=== PATIENT | male | born 1945 | race Caucasian/White ===

== ENCOUNTER 2017-12-18 21:06 | Emergency (ER) | payer OTHER ==
[~2017-12-18] VITALS: Ht 182.9 cm; Wt 81.6 kg
[~2017-12-18 21:06] MED LIST: BUPROPION HYDR150 M1 PO; EPIPEN 2-PAK1 MG/ML IM; HYDROXYZINE50 MG PO; NEXIUM 40MG40 MG PO; PREDNISONE10 MG PO
--- NOTE | 2017-12-18 22:49 | RADIOLOGY REPORT ---
EXAMINATION: XR CHEST CLINICAL INFORMATION: Dyspnea COMPARISON: Prior chest June 2017 TECHNIQUE: 2 views of the chest were obtained. FINDINGS: No significant abnormality is noted involving the heart, lungs, mediastinum, bony thorax or soft tissues. IMPRESSION: Unremarkable examination.
[2017-12-18 23:56] VITALS: BP 131/60
--- NOTE | 2017-12-18 23:59 | ED INFLUENZA/URI COMPLAINT ---
History of Present Illness General Chief Complaint: General Adult Stated Complaint: "MY DR THINKS I HAVE PNEMONIA NEED CHEST XRAY" Vital Signs & Intake/Output Vital Signs & Intake/Output Vital Signs Date Time Temp Pulse Resp B/P B/P Pulse O2 O2 Flow FiO2 Mean Ox Delivery Rate 12/18 2357 99 Room Air 12/18 2356 66 20 99 Room Air 12/18 2129 97.9 68 18 150/72 95 Room Air Allergies Coded Allergies: MDX - PCN (penicillin) (PCN (PENICILLIN)) (UNKNOWN 09/17/11) Reconcile Medications Albuterol Sulfate (Ventolin Hfa) 90 MCG HFA.AER.AD 2 PUF INH Q4-6 PRN PRN COUGH WHEEZE Benzonatate (Tessalon Perle) 100 MG CAPSULE 1-2 CAP PO TID PRN COUGH BUPROPION HCL (Bupropion XL) 150 MG TAB.ER.24H 1 TAB PO QAM SMOKING CESSATION (Reported) Epinephrine (Epipen 2-John Auto-Injector) 1 MG/ML KIT 0.3 mg IM PRN PRN anaphylactic reaction Esomeprazole (Nexium) 40 MG CAPSULE.DR 1 CAP PO DAILY GERD (Reported) Hydroxyzine Hydrochloride (Hydroxyzine) 50 MG TAB 1 TAB PO Q6H PRN RASH/ITCH Prednisone 50 MG TABLET 1 TAB PO DAILY BRONCHITIS Prednisone 10 MG TABLET 3 TAB PO DAILY allergic reaction Triage Note: PT FROM HOME C/O PNEUMONIA?? PT STATES THAT LAST WEEK PT HAD A PRODUCTIVE COUGH WITH YELLOW SPUTUM, CALLED PCP, PRESCIBED ZPAK, PT FINISHED ZPAK YESTERDAY AND FEELS THE SAME. PT FEELS SOB 95% O2 ON RA. PTS VSS. PT STATES "I JUST FEEL TIRED AND I STILL HAVE THIS COUGH" Past History Travel History Traveled to [place] past 21 day No Medical History Neurological: NONE EENT: NONE Cardiovascular: NONE Respiratory: NONE Gastrointestinal: NONE Hepatic: NONE Renal: NONE Musculoskeletal: NONE Psychiatric: NONE Endocrine: NONE Psychosocial History What is your primary language Kyrgyz Tobacco Use: Current Daily Use Daily Tobacco Use Amount/Type: => 5 Cigarettes daily Progress Diagnostic Imaging: Viewed by Me: Radiology Read. Discussed w/RAD: Radiology Read. Radiology Impression: PATIENT: OLIVE GILLIS PRESENT AGE: 72 PATIENT ACCOUNT NO: [id number] : 44 LOCATION: [facility] ORDERING PHYSICIAN: Luis Fernando Hunter MD SERVICE DATE: 12/18/17 EXAM TYPE: RAD - XRY-CHEST XRAY, TWO VIEWS EXAMINATION: XR CHEST CLINICAL INFORMATION: Dyspnea COMPARISON: Prior chest June 2017 TECHNIQUE: 2 views of the chest were obtained. FINDINGS: No significant abnormality is noted involving the heart, lungs, mediastinum, bony thorax or soft tissues. IMPRESSION: Unremarkable examination. DICTATED BY: Dario Dick MD DATE/TIME DICTATED: 12/18/172245 QUALITY ASSURANCE INTERN:DAMION DATE/TIME TRANSCRIBED:12/18/172245 CONFIDENTIAL, DO NOT COPY WITHOUT APPROPRIATE AUTHORIZATION. <Electronically signed in Other Vendor System> SIGNED BY: Dario Dick MD 12/18/172248 Departure Departure Condition: Stable Referrals: Candi Meek APRN (PCP/Family) Departure Forms: Customer Survey General Discharge Information Prescriptions: Current Visit Scripts Prednisone 1 TAB PO DAILY #4 TAB Benzonatate (Tessalon Perle) 1-2 CAP PO TID PRN COUGH #30 CAP Albuterol Sulfate (Ventolin Hfa) 2 PUF INH Q4-6 PRN PRN COUGH WHEEZE #1 INHAL Ref 1
--- NOTE | 2017-12-19 00:22 | ED GENERAL ADULT ---
History of Present Illness General Chief Complaint: General Adult Stated Complaint: "MY DR THINKS I HAVE PNEMONIA NEED CHEST XRAY" Source: patient Exam Limitations: no limitations Vital Signs & Intake/Output Vital Signs & Intake/Output Vital Signs Date Time Temp Pulse Resp B/P B/P Pulse O2 O2 Flow FiO2 Mean Ox Delivery Rate 12/18 2357 99 Room Air 12/18 2356 98.6 66 20 131/60 99 Room Air 12/18 2129 97.9 68 18 150/72 95 Room Air ED Intake and Output 12/19 0000 12/18 1200 Intake Total 0 Output Total Balance 0 Intake, Oral 0 Patient 180 lb Weight Weight Reported by Patient Measurement Method Allergies Coded Allergies: MDX - PCN (penicillin) (PCN (PENICILLIN)) (UNKNOWN 09/17/11) Reconcile Medications Albuterol Sulfate (Ventolin Hfa) 90 MCG HFA.AER.AD 2 PUF INH Q4-6 PRN PRN COUGH WHEEZE Benzonatate (Tessalon Perle) 100 MG CAPSULE 1-2 CAP PO TID PRN COUGH BUPROPION HCL (Bupropion XL) 150 MG TAB.ER.24H 1 TAB PO QAM SMOKING CESSATION (Reported) Epinephrine (Epipen 2-John Auto-Injector) 1 MG/ML KIT 0.3 mg IM PRN PRN anaphylactic reaction Esomeprazole (Nexium) 40 MG CAPSULE. 1 CAP PO DAILY GERD (Reported) Hydroxyzine Hydrochloride (Hydroxyzine) 50 MG TAB 1 TAB PO Q6H PRN RASH/ITCH Prednisone 50 MG TABLET 1 TAB PO DAILY BRONCHITIS Prednisone 10 MG TABLET 3 TAB PO DAILY allergic reaction Triage Note: PT FROM HOME C/O PNEUMONIA?? PT STATES THAT LAST WEEK PT HAD A PRODUCTIVE COUGH WITH YELLOW SPUTUM, CALLED PCP, PRESCIBED ZPAK, PT FINISHED ZPAK YESTERDAY AND FEELS THE SAME. PT FEELS SOB 95% O2 ON RA. PTS VSS. PT STATES "I JUST FEEL TIRED AND I STILL HAVE THIS COUGH" Triage Nurses Notes Reviewed? yes Onset: Gradual Duration: day(s):, waxing and waning Timing: recent history Injury Environment: home Severity: mild Modifying Factors: Improves With: rest. Associated Symptoms: cough HPI: 71-year-old gentleman, current smoker, presents with 1 week of cough with productive phlegm without fever chills chest pain shortness of breath. He states that he saw his PMD and finished a course of azithromycin yesterday. He notes that he continues to have copious yellow phlegm. He is otherwise well and has no other concerns. Past History Travel History Traveled to [place] past 21 day No Medical History Any Pertinent Medical History? see below for history Neurological: NONE EENT: NONE Cardiovascular: NONE Respiratory: NONE Gastrointestinal: NONE Hepatic: NONE Renal: NONE Musculoskeletal: NONE Psychiatric: NONE Endocrine: NONE Surgical History Surgical History: none Psychosocial History What is your primary language Sudanese Tobacco Use: Current Daily Use Daily Tobacco Use Amount/Type: => 5 Cigarettes daily Family History Hx Contributory? No Review of Systems Review of Systems Constitutional: Denies: see HPI. Physical Exam Physical Exam General Appearance: well developed/nourished, no apparent distress, comfortable Comments: Review of Systems - except as otherwise noted in HPI Review of Systems Constitutional:no symptoms. EENTM:no symptoms. Respiratory:no symptoms. Cardiovascular:no symptoms. GI:no symptoms. Genitourinary:no symptoms. Musculoskeletal:no symptoms. Skin:no symptoms. Neurological/Psychological:no symptoms. Hematologic/Endocrine:no symptoms. Immunologic/Allergic:no symptoms. All Other Systems: Reviewed and Negative Physical Exam Physical Exam General Appearance: well developed/nourished, no apparent distress Head: atraumatic, normal appearance Eyes: Bilateral: normal appearance. Ears, Nose, Throat: normal pharynx, normal ENT inspection Neck: normal inspection, supple, full range of motion Respiratory: chest non-tender, no respiratory distress, quiet respiration, lungs clear, mild rhonchi Cardiovascular: regular rate/rhythm Gastrointestinal: normal bowel sounds, soft, non-tender, no organomegaly Back: normal inspection, normal range of motion Extremities: normal inspection, normal capillary refill, normal range of motion, no edema Neurologic/Psych: no motor/sensory deficits, awake, alert, oriented x 3 Skin: intact, normal color, warm/dry Core Measures ACS in differential dx? No CVA/TIA Diagnosis: No Sepsis Present: No Sepsis Focused Exam Completed? No Progress Differential Diagnoses I considered the following diagnoses in my evaluation of the patient: Kaisers versus pneumonia versus other Plan of Care: Current Medications Sig/Gorge Start time Last Medication Dose Stop Time Status Admin Prednisone 60 MG ONCE ONE 12/19 0045 AC 12/19 0046 Diagnostic Imaging: Viewed by Me: Radiology Read. Discussed w/RAD: Radiology Read. CXR Impression: PATIENT: OLIVE GILLIS JR PRESENT AGE : 72 PATIENT ACCOUNT NO: [id number] : 44 LOCATION: [facility] ORDERING PHYSICIAN: Luis Fernando Hunter MD SERVICE DATE: 12/18/17 EXAM TYPE: RAD - XRY-CHEST XRAY, TWO VIEWS EXAMINATION: XR CHEST CLINICAL INFORMATION: Dyspnea COMPARISON: Prior chest June 2017 TECHNIQUE: 2 views of the chest were obtained. FINDINGS: No significant abnormality is noted involving the heart , lungs, mediastinum, bony thorax or soft tissues. IMPRESSION: Unremarkable examination. DICTATED BY: Dario Dick MD DATE/TIME DICTATED:12/18/172245 ENROBER:DAMION DATE/TIME TRANSCRIBED:12/18/172245 CONFIDENTIAL, DO NOT COPY WITHOUT APPROPRIATE AUTHORIZATION. <Electronically signed in Other Vendor System> SIGNED BY: Dario Dick MD 12/18/172248 Initial ED EKG: none Departure Departure Disposition: HOME OR SELF CARE Condition: Stable Clinical Impression Primary Impression: Bronchitis Referrals: Candi Meek APRN (PCP/Family) Departure Forms: Customer Survey General Discharge Information Prescriptions: Current Visit Scripts Prednisone 1 TAB PO DAILY #4 TAB Benzonatate (Tessalon Perle) 1-2 CAP PO TID PRN COUGH #30 CAP Albuterol Sulfate (Ventolin Hfa) 2 PUF INH Q4-6 PRN PRN COUGH WHEEZE #1 INHAL Ref 1 Comments Patient with benign chest x-ray, and has recently completed azithromycin. Given the duration of azithromycin in his system last several more days, instead of prescribe a new antibiotic, I prescribed prednisone and albuterol. Close follow -up advised. Critical Care Note Critical Care Note Critical Care Time: non-applicable
[2017-12-19] MEDS ORDERED: PREDNISONE50 M1 PO (00:40)
[2017-12-19] MEDS ORDERED: TESSALON PERLE100 M1 PO (00:40)
[2017-12-19] MEDS ORDERED: VENTOLIN HFA18 GM INH (00:40)
== END 2017-12-19 00:46 ==
LOC: ERH 21:06
DX: J40 Bronchitis, not specified as acute or chronic (principal); F17.210 Nicotine dependence, cigarettes, uncomplicated
CPT/HCPCS: 71046